=== PATIENT | male | born 1985 | race Two or more races ===

== ENCOUNTER 2021-12-20 16:01 | Emergency (ER) | payer SELFPAY ==
[~2021-12-20] VITALS: Ht 180.3 cm; Wt 108.9 kg
[2021-12-20 16:54] VITALS: BP 146/91
[2021-12-20] MEDS ORDERED: KETOROLAC TROMETH 60MG/2ML VIAL IM ONE (17:15)
[2021-12-20] MEDS ORDERED: BACL10TA PO (17:36)
[2021-12-20] MEDS ORDERED: IBUP800T27 PO (17:36)
== END 2021-12-20 17:54 | disposition home or self-care (01) ==
LOC: EDSEX 16:01 → ER 16:01
DX: S16.1XXA Strain of muscle, fascia and tendon at neck level, initial encounter (principal); S00.03XA Contusion of scalp, initial encounter; W01.0XXA Fall on same level from slipping, tripping and stumbling without subsequent striking against object, initial encounter; Y93.89 Activity, other specified; Y92.89 Other specified places as the place of occurrence of the external cause; Y99.8 Other external cause status
CPT/HCPCS: 70450; 72125; 96372; 99284; J1885

== ENCOUNTER 2022-02-19 10:23 | Emergency (ER) | payer SELFPAY ==
[~2022-02-19] VITALS: Ht 180.3 cm; Wt 100.4 kg
[~2022-02-19 10:23] MED LIST: BACL10TA PO; IBUP800T27 PO
[2022-02-19 11:46] LABS: Urine Bacteria NONE SEEN /hpf (None Seen); Urine Blood Negative /uL (Negative); Urine Mucus FEW (None Seen); Urine Specific Gravity 1.032 (1.001-1.035); Urine WBC 2 /hpf (0 - 3)
[2022-02-19 12:08] LABS: Alcohol, Urine < 3.0 mg/dL (0-10); Amphetamine Screen, Urine NEGATIVE (NEGATIVE); Barbiturate Scree,Urine NEGATIVE (NEGATIVE); Benzodiazephine Screen, Urine NEGATIVE (NEGATIVE); Cannabinoid Screen, Urine NEGATIVE (NEGATIVE); Cocaine Screen, Urine NEGATIVE (NEGATIVE); Opiate Scree,Urine NEGATIVE (NEGATIVE); Phencyclidine Screen, Urine NEGATIVE (NEGATIVE)
[2022-02-19 12:38] LABS: Basophils # (auto) 0 10 ^3/uL (0-0.2); Basophils % (auto) 0.2 % (0.0-2.0); Eosinophils # (auto) 0.1 10 ^3/uL (0-0.8); Eosinophils % (auto) 0.6 % (0.0-7.0); Hemoglobin 17.3 g/dL (13.5-17.5); Lymphocytes # (auto) 1.6 10 ^3/uL (0.4-5.4); Lymphocytes % (auto) 17.9 % (10.0-50.0); Mean Corpuscular Hemoglobin 29.7 pg (28.0-32.0); Mean Corpuscular Hgb Conc. 34.6 g/dL (32.0-36.0); Monocytes # (auto) 0.7 10 ^3/uL (0-1.3); Monocytes % (auto) 7.9 % (0.0-12.0); Neutrophils # (auto) 6.6 10 ^3/uL (1.6-8.6); Neutrophils % (auto) 73.4 % (37.0-80.0); Nucleated Red Blood Cells % 0.2 %; Red Blood Cells 5.81 10^6/uL (4.5-5.90); Red Cell Distribution Width 13.1 % (11.8-14.3)
[2022-02-19 12:54] LABS: Potassium 3.5 mmol/L (3.5-5.1)
[2022-02-19 13:00] VITALS: BP 115/72
[2022-02-19 13:06] LABS: Albumin 4.7 g/dL (3.4-5.0); Bilirubin, Total 1.4 mg/dL (0.2-1.0); Calcium 9.5 mg/dL (8.5-10.1); Magnesium 2.3 mg/dL (1.6-2.6); Total Protein 8.3 g/dL (6.4-8.2)
== END 2022-02-19 13:57 | disposition left against medical advice (07) ==
LOC: ER 10:26
DX: R07.89 Other chest pain (principal); F07.81 Postconcussional syndrome; R74.01 Elevation of levels of liver transaminase levels; Z53.29 Procedure and treatment not carried out because of patient's decision for other reasons
CPT/HCPCS: 36415; 71045; 76705; 80053; 80307; 81001; 83735; 83880; 84484; 85025; 93005

== ENCOUNTER 2022-05-02 19:09 | Emergency (ER) | payer SELFPAY ==
[~2022-05-02] VITALS: Ht 180.3 cm; Wt 106.8 kg
[2022-05-02] MEDS ORDERED: KETOROLAC TROMETH 30 MG/ML 1ML VIAL IV ONE (20:00)
[2022-05-02] MEDS ORDERED: MORPHINE SULFATE 4 MG/ML SYR/VIAL IV ONE (20:00)
[2022-05-02] MEDS ORDERED: ONDANSETRON HCL 4 MG/2 ML VIAL IV ONE (20:00)
[2022-05-02 20:25] LABS: Basophils # (auto) 0 10 ^3/uL (0-0.2); Basophils % (auto) 0.3 % (0.0-2.0); Eosinophils # (auto) 0.1 10 ^3/uL (0-0.8); Eosinophils % (auto) 0.5 % (0.0-7.0); Hematocrit 48.3 % (41.0-53.0); Hemoglobin 16.8 g/dL (13.5-17.5); Lymphocytes # (auto) 2.6 10 ^3/uL (0.4-5.4); Mean Corpuscular Hemoglobin 30.1 pg (28.0-32.0); Mean Corpuscular Hgb Conc. 34.8 g/dL (32.0-36.0); Mean Corpuscular Volume 86.5 fL (80.0-100.0); Monocytes # (auto) 0.9 10 ^3/uL (0-1.3); Monocytes % (auto) 7.8 % (0.0-12.0); Neutrophils # (auto) 8.2 10 ^3/uL (1.6-8.6); Neutrophils % (auto) 69.4 % (37.0-80.0); Nucleated Red Blood Cells % 0.2 %; Red Blood Cells 5.58 10^6/uL (4.5-5.90); White Blood Cell 11.8 10^3/uL (4.4-10.8)
[2022-05-02] MEDS ORDERED: SODIUM CHLORIDE 0.9% 1,000 ML IV ONE ×2 (20:30)
[2022-05-02 20:37] LABS: Albumin 4.2 g/dL (3.4-5.0); BUN/Creatinine Ratio 11.4; Calcium 9.1 mg/dL (8.5-10.1); Potassium 3.4 mmol/L (3.5-5.1)
[2022-05-02 20:39] LABS: Bilirubin, Total 0.7 mg/dL (0.2-1.0)
[2022-05-02] MEDS ORDERED: PANT40TA2 PO (21:29)
[2022-05-02] MEDS ORDERED: IBU600T PO (21:29)
[2022-05-02] MEDS ORDERED: POTASSIUM EFFERVESENT TAB 25 MEQ PO ONE (21:30)
[2022-05-02 23:20] VITALS: BP 135/60
== END 2022-05-02 23:40 | disposition home or self-care (01) ==
LOC: ER 19:09
DX: K29.70 Gastritis, unspecified, without bleeding (principal)
CPT/HCPCS: 36415; 74177; 76705; 80053; 83690; 85025; 96374; 96375; 99284; J1885; J2270; J2405; 81001